=== PATIENT | male | born 1985 | race Caucasian/White ===

== ENCOUNTER 2017-08-30 09:48 | Emergency (ER) | payer SELFPAY ==
[~2017-08-30] VITALS: Ht 182.9 cm; Wt 86.2 kg
[2017-08-30] MEDS ORDERED: IBUPROFEN 600 MG TABLET PO ONE ×2 (10:00→10:06)
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
--- NOTE | 2017-08-30 10:30 | NUR ---
PT TAKEN TO XRAY.
--- NOTE | 2017-08-30 11:05 | NUR ---
Patient discharged to home in stable condition. Written and verbal after care instructions given. Patient verbalizes understanding of instruction.
[2017-08-30 11:20] VITALS: BP 131/88
== END 2017-08-30 11:20 | disposition home or self-care (01) ==
LOC: ER 09:49
DX: S13.4XXA Sprain of ligaments of cervical spine, initial encounter (principal); V43.52XA Car driver injured in collision with other type car in traffic accident, initial encounter; Y93.89 Activity, other specified; Y92.410 Unspecified street and highway as the place of occurrence of the external cause; Y99.8 Other external cause status
CPT/HCPCS: 71045; 72040; 73090; 99284; A4606; L0172; Z7610